=== PATIENT | female | born 1980 | race Caucasian/White ===

== ENCOUNTER → 2021-12-23 | Outpatient (CLI) | payer OTHER ==
[2021-12-23 17:08] LABS: BASO % 0.1 % (0.0-1.0); EOS # 0.1 10^3/uL (0.0-0.5); EOS % 0.6 % (0.0-3.0); HEMATOCRIT 37.8 % (36.0-47.0); HEMOGLOBIN 12.3 g/dl (12.0-15.5); LYMPH # 1.5 10^3/uL (1.5-5.0); LYMPH % 15.2 % (24.0-44.0); MEAN CORPUSCULAR HEMOGLOBIN 28.7 pg (27.0-33.0); MEAN CORPUSCULAR HGB CONC 32.5 g/dl (32.0-36.5); MEAN CORPUSCULAR VOLUME 88.1 fl (80.0-96.0); MONO # 0.7 10^3/uL (0.0-0.8); MONO % 7.3 % (2.0-8.0); NEUTROPHILS # 7.6 10^3/uL (1.5-8.5); NEUTROPHILS % 76.6 % (36.0-66.0); PLATELET COUNT, AUTOMATED 202 10^3/uL (150-450); RED BLOOD COUNT 4.29 10^6/uL (4.00-5.40); WHITE BLOOD COUNT 9.9 10^3/uL (4.0-10.0)
[2021-12-23 18:21] LABS: HEPATITIS C VIRUS ABY INDEX 0.1 INDEX (<0.8); HIV 1&2 SCREEN CENTAUR NEGATIVE (NEGATIVE)
[2021-12-23 18:44] LABS: GC DNA AMPLIFICATION NEGATIVE (NEGATIVE)
== END ==
LOC: M PLALAB 15:47
PROVIDERS: ATTEND Advanced Practice Midwife
DX: Z36.9 Encounter for antenatal screening, unspecified (principal); Z87.59 Personal history of other complications of pregnancy, childbirth and the puerperium; O20.9 Hemorrhage in early pregnancy, unspecified
CPT/HCPCS: 36415; 85025; 86762; 86780; 86803; 86850; 86900; 86901; 87086; 87340; 87389; 87810; 87850; G0463

== ENCOUNTER → 2022-02-23 | Outpatient (REF) | payer OTHER | LOC: M SFHCWAGY 17:26 | PROVIDERS: ATTEND Obstetrics & Gynecology | DX: R82.90 Unspecified abnormal findings in urine (principal) ==

== ENCOUNTER → 2022-03-02 | Outpatient (CLI) | payer OTHER | LOC: M WHC 11:54 | PROVIDERS: ATTEND Obstetrics & Gynecology | DX: Z36.9 Encounter for antenatal screening, unspecified (principal); Z3A.20 20 weeks gestation of pregnancy ==

== ENCOUNTER → 2022-04-09 | Outpatient (CLI) | payer OTHER | LOC: M WHC 14:26 | PROVIDERS: ATTEND Specialist | DX: Z36.89 Encounter for other specified antenatal screening (principal); Z3A.25 25 weeks gestation of pregnancy ==

== ENCOUNTER → 2022-04-28 | Outpatient (CLI) | payer OTHER | LOC: M WHC 13:47 | PROVIDERS: ATTEND Specialist | DX: Z36.89 Encounter for other specified antenatal screening (principal); Z3A.28 28 weeks gestation of pregnancy ==

== ENCOUNTER → 2022-05-18 | Outpatient (CLI) | payer OTHER ==
[2022-05-18 10:23] LABS: HEMATOCRIT 34.8 % (36.0-47.0); HEMOGLOBIN 11.1 g/dl (12.0-15.5); MEAN CORPUSCULAR HEMOGLOBIN 29.4 pg (27.0-33.0); MEAN CORPUSCULAR HGB CONC 31.9 g/dl (32.0-36.5); MEAN CORPUSCULAR VOLUME 92.3 fl (80.0-96.0); PLATELET COUNT, AUTOMATED 195 10^3/uL (150-450); RED BLOOD COUNT 3.77 10^6/uL (4.00-5.40)
== END ==
LOC: M PLALAB 08:11
PROVIDERS: ATTEND Specialist
DX: Z36.89 Encounter for other specified antenatal screening (principal)

== ENCOUNTER → 2022-06-22 | Outpatient (REF) | payer OTHER | LOC: M SFHCWAGY 15:12 | PROVIDERS: ATTEND Specialist | DX: Z36.85 Encounter for antenatal screening for Streptococcus B (principal); Z34.03 Encounter for supervision of normal first pregnancy, third trimester ==

== ENCOUNTER 2022-07-16 01:34 | Inpatient (IN) | payer OTHER ==
[2022-07-16] VITALS (71 sets, daily range): BP systolic 103–173; BP diastolic 55–88
[~2022-07-16] VITALS: Ht 172.7 cm; Wt 102.1 kg
[2022-07-16] MEDS ORDERED: PRENTAB9 PO (01:46)
[2022-07-16] MEDS ORDERED: HOME MED LIST COMPLETE! XX SCH (01:50)
[2022-07-16] MEDS ORDERED: BUTORPHANOL 2 MG/ML 1ML VIAL IV ONE (02:35)
[2022-07-16] MEDS ORDERED: PROMETHAZINE 25MG/ML 1ML VIAL IV ONE (02:35)
[2022-07-16 03:00] LABS: HEMATOCRIT 35.5 % (36.0-47.0); HEMOGLOBIN 11.9 g/dl (12.0-15.5); MEAN CORPUSCULAR HEMOGLOBIN 29.6 pg (27.0-33.0); MEAN CORPUSCULAR HGB CONC 33.5 g/dl (32.0-36.5); MEAN CORPUSCULAR VOLUME 88.3 fl (80.0-96.0); PLATELET COUNT, AUTOMATED 179 10^3/uL (150-450); RED BLOOD COUNT 4.02 10^6/uL (4.00-5.40); WHITE BLOOD COUNT 12.6 10^3/uL (4.0-10.0)
[2022-07-16 03:26] LABS: LDH LACTATE DEHYDROGENASE 216 U/L (120-246)
[2022-07-16 03:28] LABS: ALT/SGPT 14 U/L (7.0-40); AST/SGOT 25 U/L (<34); BILIRUBIN,TOTAL 0.5 MG/DL (0.3-1.2); CREATININE FOR GFR 0.61 MG/DL (0.55-1.30); GLOMERULAR FILTRATION RATE > 60.0 (>58)
[2022-07-16 03:56] LABS: URIC ACID 5.8 MG/DL (3.1-7.8)
[2022-07-16] MEDS ORDERED: CARBOPROST TROMETHAMINE 250 MCG/ML AMP IM PRN (05:05)
[2022-07-16] MEDS ORDERED: OXYTOCIN INJ 10UNITS/ML 1ML VIAL IM PRN (05:05)
[2022-07-16] MEDS ORDERED: LIDOCAINE 1% MDV 20ML VIAL INFIL PRN (05:05)
[2022-07-16] MEDS ORDERED: OXYTOCIN DRIP 30 UNITS in IV 1 EA IV PRN ×4 (05:05)
[2022-07-16] MEDS ORDERED: TRANEXAMIC ACID INJection 1,000 MG in NS 100 ML IV PRN (05:05)
[2022-07-16 05:41] LABS: TOTAL PROTEIN,RANDOM URINE 103.8 MG/DL (0.0-14.0)
[2022-07-16 06:03] LABS: CREATININE,RANDOM URINE 235.1 MG/DL
[2022-07-16] MEDS ORDERED: ONDANSETRON 4MG 2ML VIAL IV PRN ×2 (07:35→18:35)
[2022-07-16] MEDS ORDERED: EPIDURAL/PCA KEYS XX PRN (07:35)
[2022-07-16] MEDS ORDERED: NALOXONE INJ 0.4MG/1ML VIAL IV PRN (07:35)
[2022-07-16] MEDS ORDERED: LR 500 ML IV PRN (07:35)
[2022-07-16] MEDS ORDERED: diphenhydrAMINE 50MG/ML VIAL IV PRN (07:35)
[2022-07-16] MEDS ORDERED: ePHEDrine SULFATE 25 MG/5 ML(5MG/ML) SYRINGE IVP PRN (07:35)
[2022-07-16] MEDS ORDERED: FENTANYL 2MCG/ML ROPIVACAINE 0.2% IN 0.9% NACL 100ML IVBAG As Ordered ONE (07:46)
[2022-07-16] MEDS: FENTANYL/ROPIVACAINE/NACL BAG 100 ML EPIDURAL SCH ×2 (07:59→17:13)
[2022-07-16] MEDS ORDERED: ONDANSETRON 4MG 2ML VIAL As Ordered ONE (08:10)
[2022-07-16] MEDS ORDERED: MORPHINE PRES-FREE INJ 10 MG/10 ML VIAL As Ordered ONE (08:10)
[2022-07-16] MEDS ORDERED: ACETAMINOPHEN 1000MG 100ML IV BAG As Ordered ONE (08:10)
[2022-07-16] MEDS ORDERED: OXYTOCIN 30 UNITS IN 0.9% NaCl 500ML IV BAG (J2590) As Ordered ONE (08:10)
[2022-07-16] MEDS ORDERED: KETOROLAC 60MG 2ML VIAL As Ordered ONE (08:10)
[2022-07-16] MEDS ORDERED: ePHEDrine SULFATE 25 MG/5 ML(5MG/ML) SYRINGE As Ordered ONE (08:55)
[2022-07-16] MEDS ORDERED: OXYTOCIN DRIP 30 UNITS in IV 1 EA IV SCH ×2 (16:55→18:35)
[2022-07-16 18:20] LABS: CORD GAS ABE V -3.9; CORD GAS HCO3 V 22.6 MEQ/L; CORD GAS O2 SAT V 45.9 %; CORD GAS PCO2 V 46.6 mmHg; CORD GAS PH V 7.304 UNITS; CORD GAS PO2 V 20.3 mmHg; CORD GAS TCO2 V 24.1 MEQ/L
[2022-07-16 18:22] LABS: CORD GAS PCO2 A 52.8 mmHg; CORD GAS PH A 7.237 UNITS; CORD GAS PO2 A 14.3 mmHg; CORD GAS TCO2 A 23.6 MEQ/L
[2022-07-16] MEDS ORDERED: RHOGAM 300 MCG (1500 IU) INJ (J2790) IM SCH (18:35)
[2022-07-16] MEDS ORDERED: ACETAMINOPHEN TAB 650MG DOSE (2X325MG) PO PRN (18:35)
[2022-07-16] MEDS ORDERED: LR 1,000 ML IV SCH (18:35)
[2022-07-16] MEDS ORDERED: ACETAMINOPHEN 500 MG TAB PO PRN (18:35)
[2022-07-16] MEDS ORDERED: ANUSOL HC CREAM 30GM TOP PRN (18:35)
[2022-07-16] MEDS ORDERED: IBUPROFEN 600MG TAB PO PRN (18:35)
[2022-07-16] MEDS ORDERED: DOCUSATE SODIUM 100MG CAPSULE PO PRN (18:35)
[2022-07-16] MEDS ORDERED: DIBUCAINE 1% OINTMENT 30GM TOP PRN (18:35)
[2022-07-17] MEDS: IBUPROFEN 800 MG TAB PO PRN ×2 (00:17→16:35)
[2022-07-17 06:00] VITALS: BP 120/61
[2022-07-17] MEDS: PRENATAL VITAMINS CHEWABLE TABLET PO SCH (08:43)
[2022-07-17 17:40] VITALS: BP 149/76
[2022-07-18 06:00] VITALS: BP 136/82
[2022-07-18] MEDS: IBUPROFEN 800 MG TAB PO PRN ×2 (08:00→16:16)
[2022-07-18] MEDS: PRENATAL VITAMINS CHEWABLE TABLET PO SCH (08:00)
[2022-07-18] MEDS ORDERED: MEASLES,MUMPS,RUBELLA VACCINE INJ (MMR-II) (90707) SC.IMMUN ONE (09:00)
== END 2022-07-18 15:00 | disposition home or self-care (01) | DRG 807 ==
LOC: M LDO 01:34 → M LDI 05:02 → M OBS 22:19
PROVIDERS: ADMIT Advanced Practice Midwife; ATTEND Obstetrics & Gynecology
PROC: 10E0XZZ Delivery of Products of Conception, External Approach (ICD-10-PCS; principal; 2022-07-16)
PROC: 0KQM0ZZ Repair Perineum Muscle, Open Approach (ICD-10-PCS; 2022-07-16)
PROC: 10907ZC Drainage of Amniotic Fluid, Therapeutic from Products of Conception, Via Natural or Artificial Opening (ICD-10-PCS; 2022-07-16)
DX: O34.03 Maternal care for unspecified congenital malformation of uterus, third trimester (principal); Z37.0 Single live birth; Z3A.39 39 weeks gestation of pregnancy; O09.523 Supervision of elderly multigravida, third trimester; O70.1 Second degree perineal laceration during delivery

== ENCOUNTER → 2023-01-01 | Outpatient (REF) | payer OTHER ==
[~2023-01-01] MED LIST: PRENTAB9 PO
== END ==
LOC: M SFHCWAGY 17:49
PROVIDERS: ATTEND Obstetrics & Gynecology
DX: Z12.4 Encounter for screening for malignant neoplasm of cervix (principal)
CPT/HCPCS: 87624; G0123